=== PATIENT | male | born 1960 | race African-American/Black ===

== ENCOUNTER 2020-06-05 16:39 | Emergency (ER) | payer SELFPAY ==
[2020-06-06 00:03] LABS: SARS-CoV-2 MS2 Positive; SARS-CoV-2 N Gene Negative; SARS-CoV-2 S Gene Negative; SARS-CoV-2 by NAA Not Detected (NotDetected); SARS-CoV-2 orf1ab Negative
== END 2020-06-05 17:15 | disposition home or self-care (01) ==
LOC: ERS 16:39
DX: I10 Essential (primary) hypertension (principal); Z20.828 Contact with and (suspected) exposure to other viral communicable diseases; B20 Human immunodeficiency virus [HIV] disease; F17.210 Nicotine dependence, cigarettes, uncomplicated
CPT/HCPCS: 87635; 99283; U0003